=== PATIENT | male | born 1965 | race Caucasian/White ===

== ENCOUNTER 2016-06-05 11:00 | Inpatient (IN) | payer BC, OTHER ==
[~2016-06-05] VITALS: Ht 170.2 cm; Wt 93.3 kg
[~2016-06-05 11:00] MED LIST: AMITRIPTYLINE H10 MG PO; AMLODIPINE BESYL5 MG PO; ASPIR 8181 M1 PO; BENICAR HCT 401 EAC1 PO; BENICAR HCT1 TABLET PO; BUSPAR10 MG PO; BUSPAR5 MG PO; CELEXA10 MG PO; CELEXA20 MG PO; Calan SR,Covera HS,I PO; Cipro; INDOCIN25 MG PO; INDOMETHACIN25 MG PO; KLONOPIN0.5 M1 NG; METFORMIN HCL500 MG PO; MINIPRESS2 MG PO; MOBIC15 MG PO; PAMELOR75 MG PO; PRAVASTATIN SOD20 MG PO; PRAVASTATIN SOD40 MG PO; PRAZOSIN HCL2 MG PO; PRINIVIL20 MG PO; TACROLIMUS30 GM TP; TORADOL30 MG/ML IM; TRICOR145 MG PO; VICTOZA 2-0.6 MG/0.1 SC; VIIBRYD10 MG PO; VIIBRYD20 MG PO; WELLBUTRIN SR150 MG PO; WELLBUTRIN100 M1 PO; ZESTORETIC,P1 TABLE1 PO; [UNRECOGNIZED DRUG - OTHER] PO
[2016-06-05 11:52] LABS: EOSINOPHIL (%) 1.7 % (0-5); EOSINOPHIL COUNT 0.1 K/uL (0-0.3); HEMATOCRIT 40.4 % (38.0-50.0); IMMATURE GRANULOCYTE (%) 0.2 % (0.0-0.7); INSTRUMENT ABS NEUTROPHIL CT 6.2 K/uL; LYMPHOCYTE COUNT 1.4 K/uL (1.0-2.8); MCH 28.9 PG (29.0-34.0); MCHC 34.2 G/DL (30.0-36.0); MCV 84.7 FL (86-99); MEAN PLAT.VOLUME 9.7 uM^3 (9.0-12.4); MONOCYTE (%) 4.6 % (3-12); MONOCYTE COUNT 0.4 K/uL (0-0.8); NEUTROPHIL (%) 76.2 % (45-76); NEUTROPHIL COUNT 6.2 K/uL (1.8-6.4); PLATELET COUNT 172 K/uL (156-360); RBC DIS.WIDTH-SD 36.4 % (39-53); RED BLOOD COUNT 4.77 M/uL (4.00-5.50); WHITE BLOOD COUNT 8.2 K/uL (4.1-10.2)
[2016-06-05 12:01] LABS: INTER. NORMALIZED RATIO 1.1; PROTHROMBIN TIME 10.7 (9.2-11.2); PTT 25.3 (25-32)
[2016-06-05 12:03] LABS: CHLORIDE 101 mEq/L (99-109); POTASSIUM 3.7 mEq/L (3.7-5.4); SODIUM 137 mEq/L (136-147)
[2016-06-05 12:04] LABS: GLUCOSE 191 mg/dL (70-99)
[2016-06-05 12:06] LABS: ANION GAP 9 MEQ/L (2-14)
[2016-06-05 12:08] LABS: GFR ESTIMATE (CALCULATED) > 59 mL/min/
[2016-06-05 12:09] LABS: UREA NITROGEN (BUN) 12 mg/dL (9-23)
[2016-06-05 12:51] LABS: Estimated Average Glucose 140 mg/dL (70-123); HEMOGLOBIN A1c (GLYCOHEMOGLOB) 6.5 % HGB (Below 5.7)
[2016-06-05 14:48] LABS: HDL CHOLESTEROL 28 MG/DL (Desirable>=40); LDL CHOLESTEROL 70 mg/dL (Desirable<100); NON-HDL CHOLESTEROL 102 mg/dL (Desirable<160); TOTAL CHOLESTEROL 130 mg/dL (Desirable<200); TRIGLYCERIDES 158 MG/DL (Normal: <150)
[2016-06-05] MEDS ORDERED: PRAZOSIN HCL5 MG PO (16:42)
[2016-06-05] MEDS ORDERED: VIIBRYD10 MG PO (16:43)
[2016-06-05] MEDS ORDERED: VICTOZA 2-0.6 MG/0.1 SC (16:45)
[2016-06-05] MEDS ORDERED: NEURONTIN600 MG PO (16:46)
[2016-06-05] MEDS ORDERED: KETOROLAC30 MG/1 M3 IM (16:46)
[2016-06-05 18:00] LABS: EOSINOPHIL COUNT 0.1 K/uL (0-0.3); HEMATOCRIT 39.6 % (38.0-50.0); IMMATURE GRANULOCYTE (%) 0.3 % (0.0-0.7); INSTRUMENT ABS NEUTROPHIL CT 4.2 K/uL; LYMPHOCYTE COUNT 2.1 K/uL (1.0-2.8); MCH 28.9 PG (29.0-34.0); MCHC 34.3 G/DL (30.0-36.0); MCV 84.3 FL (86-99); MEAN PLAT.VOLUME 9.5 uM^3 (9.0-12.4); MONOCYTE (%) 5.1 % (3-12); MONOCYTE COUNT 0.4 K/uL (0-0.8); NEUTROPHIL (%) 61.4 % (45-76); NEUTROPHIL COUNT 4.2 K/uL (1.8-6.4); PLATELET COUNT 177 K/uL (156-360); RBC DIS.WIDTH-CV 11.9 % (11.8-14.6); RBC DIS.WIDTH-SD 36.7 % (39-53); WHITE BLOOD COUNT 6.8 K/uL (4.1-10.2)
[2016-06-05 18:09] LABS: CHLORIDE 104 mEq/L (99-109); POTASSIUM 3.7 mEq/L (3.7-5.4); SODIUM 141 mEq/L (136-147)
[2016-06-05 18:11] LABS: GLUCOSE 146 mg/dL (70-99)
[2016-06-05 18:12] LABS: ANION GAP 10 MEQ/L (2-14)
[2016-06-05 18:15] LABS: GFR ESTIMATE (CALCULATED) > 59 mL/min/
[2016-06-05 18:16] LABS: UREA NITROGEN (BUN) 9 mg/dL (9-23)
[2016-06-05 18:24] LABS: D-DIMER ELISA 0.19 mg/L FEU (< 0.57)
[2016-06-05 18:25] LABS: TROP-I INTERPRETATION NEGATIVE; TROPONIN-I 0.01 ng/mL (0.0-0.30)
[2016-06-05 18:43] LABS: HDL CHOLESTEROL 26 MG/DL (Desirable>=40); LDL CHOLESTEROL 74 mg/dL (Desirable<100); NON-HDL CHOLESTEROL 100 mg/dL (Desirable<160); TOTAL CHOLESTEROL 126 mg/dL (Desirable<200); TRIGLYCERIDES 131 MG/DL (Normal: <150)
[2016-06-05 19:54] VITALS: BP 122/81
[2016-06-05 23:47] LABS: POINT-OF-CARE METER ID UU14174225
[2016-06-06] VITALS (7 sets, daily range): BP systolic 115–150; BP diastolic 59–98
[2016-06-06 08:10] LABS: TROP-I INTERPRETATION NEGATIVE; TROPONIN-I < 0.01 ng/mL (0.0-0.30)
[2016-06-06 11:59] LABS: POINT-OF-CARE METER ID UU14188625
[2016-06-06] MEDS ORDERED: ASPIR 8181 M1 PO (15:46)
[2016-06-06 16:37] LABS: POINT-OF-CARE METER ID UU14188625
[2016-06-07 03:58] VITALS: BP 130/71
[2016-06-07 08:49] VITALS: BP 132/81
== END 2016-06-07 11:40 | disposition home or self-care (01) | DRG 918 ==
LOC: EME 11:00 → 5SOUTH 16:29 → EDOF 16:29 → 5SOUTH 19:21
PROVIDERS: Emergency Medicine; Internal Medicine
DX: T42.6X1A Poisoning by other antiepileptic and sedative-hypnotic drugs, accidental (unintentional), initial encounter (principal); I95.2 Hypotension due to drugs; R29.810 Facial weakness; R48.2 Apraxia; R47.81 Slurred speech; H57.02 Anisocoria; I67.9 Cerebrovascular disease, unspecified; I10 Essential (primary) hypertension; E78.5 Hyperlipidemia, unspecified; E11.9 Type 2 diabetes mellitus without complications; G43.909 Migraine, unspecified, not intractable, without status migrainosus; F17.210 Nicotine dependence, cigarettes, uncomplicated; Z72.52 High risk homosexual behavior
CPT/HCPCS: 70450; 70552; 80048; 80048 91; 80061; 82948; 83036; 84484; 85025; 85025 91; 85379; 85610; 85730; 93005; 93880; 94799; 99281; 99285; J1650; J1815; J1885; J2405; J3360; J7030; J7040

== ENCOUNTER 2016-08-23 10:10 | Emergency (ER) | payer BC, OTHER ==
[~2016-08-23] VITALS: Ht 170.2 cm; Wt 91.3 kg
[~2016-08-23 10:10] MED LIST changes: +KETOROLAC30 MG/1 M3 IM; +NEURONTIN600 MG PO; +PRAZOSIN HCL5 MG PO
[2016-08-23 11:32] LABS: EOSINOPHIL (%) 1.5 % (0-5); EOSINOPHIL COUNT 0.1 K/uL (0-0.3); HEMATOCRIT 43.5 % (38.0-50.0); IMMATURE GRANULOCYTE (%) 0.5 % (0.0-0.7); INSTRUMENT ABS NEUTROPHIL CT 5.8 K/uL; LYMPHOCYTE COUNT 1.5 K/uL (1.0-2.8); MCH 28.9 PG (29.0-34.0); MCHC 34.7 G/DL (30.0-36.0); MCV 83.3 FL (86-99); MEAN PLAT.VOLUME 9.8 uM^3 (9.0-12.4); MONOCYTE (%) 5.1 % (3-12); MONOCYTE COUNT 0.4 K/uL (0-0.8); NEUTROPHIL (%) 73.5 % (45-76); NEUTROPHIL COUNT 5.8 K/uL (1.8-6.4); PLATELET COUNT 161 K/uL (156-360); RED BLOOD COUNT 5.22 M/uL (4.00-5.50); WHITE BLOOD COUNT 7.9 K/uL (4.1-10.2)
[2016-08-23 11:42] LABS: CHLORIDE 103 mEq/L (99-109); POTASSIUM 4.3 mEq/L (3.7-5.4); SODIUM 136 mEq/L (136-147)
[2016-08-23 11:44] LABS: GLUCOSE 139 mg/dL (70-99)
[2016-08-23 11:45] LABS: ANION GAP 11 MEQ/L (2-14)
[2016-08-23 11:48] LABS: GFR ESTIMATE (CALCULATED) 37 mL/min/; UREA NITROGEN (BUN) 16 mg/dL (9-23)
[2016-08-23 11:52] LABS: TROP-I INTERPRETATION NEGATIVE; TROPONIN-I < 0.01 ng/mL (0.0-0.30)
[2016-08-23 13:06] LABS: ADD MIUA? YES; BILIRUBIN NEGATIVE; BLOOD NEGATIVE; COLOR YELLOW ((YELLOW)); GLUCOSE (STRIP) NEGATIVE; KETONES NEGATIVE; LEUKOCYTES NEGATIVE; NITRITE NEGATIVE; PROTEIN (STRIP) NEGATIVE; SPECIFIC GRAVITY 1.009 (1.000-1.030); UROBILINOGEN 0.2 MG/DL (0.2-1.0)
[2016-08-23 13:30] LABS: BACTERIA NONE SEEN /HPF; EPITHELIAL CELLS NONE SEEN /HPF; HYALINE CASTS TNTC /LPF; MUCUS TRACE /LPF; RED BLOOD CELLS 0-5 /HPF (0-5); UCUL ADDED? NO; UNCLASSIFIED CRYSTALS 1+ /HPF; URIC ACID CRYSTALS 1+ /HPF; WHITE BLOOD CELLS 0-5 /HPF (0-5)
[2016-08-23 13:37] VITALS: BP 125/82
== END 2016-08-23 13:39 | disposition home or self-care (01) ==
LOC: EME 10:10
PROVIDERS: Emergency Medicine
DX: I95.9 Hypotension, unspecified (principal); I10 Essential (primary) hypertension; Z72.0 Tobacco use; Z87.442 Personal history of urinary calculi; E78.5 Hyperlipidemia, unspecified; Z88.1 Allergy status to other antibiotic agents
CPT/HCPCS: 80048; 81003; 84484; 85025; 99281; 99285; J7030

== ENCOUNTER 2017-02-15 07:08 | Emergency (ER) | payer BC, OTHER ==
[~2017-02-15] VITALS: Ht 170.2 cm; Wt 92.0 kg
[2017-02-15 10:11] LABS: EOSINOPHIL (%) 2.5 % (0-5); EOSINOPHIL COUNT 0.1 K/uL (0-0.3); HEMATOCRIT 41.6 % (38.0-50.0); IMMATURE GRANULOCYTE (%) 0.4 % (0.0-0.7); INSTRUMENT ABS NEUTROPHIL CT 3.4 K/uL; LYMPHOCYTE COUNT 1.6 K/uL (1.0-2.8); MCH 29.9 PG (29.0-34.0); MCHC 35.1 G/DL (30.0-36.0); MCV 85.1 FL (86-99); MEAN PLAT.VOLUME 9.5 uM^3 (9.0-12.4); MONOCYTE (%) 7.4 % (3-12); MONOCYTE COUNT 0.4 K/uL (0-0.8); NEUTROPHIL (%) 60.6 % (45-76); NEUTROPHIL COUNT 3.4 K/uL (1.8-6.4); PLATELET COUNT 176 K/uL (156-360); RBC DIS.WIDTH-CV 12.7 % (11.8-14.6); RBC DIS.WIDTH-SD 38.9 % (39-53); RED BLOOD COUNT 4.89 M/uL (4.00-5.50); WHITE BLOOD COUNT 5.7 K/uL (4.1-10.2)
[2017-02-15 10:16] LABS: PROTHROMBIN TIME 11.5 SEC (10.2-12.9)
[2017-02-15 10:18] LABS: PTT 28.7 SEC (25-37)
[2017-02-15 10:34] LABS: ANION GAP 6 MEQ/L (2-14); CHLORIDE 106 MEQ/L (99-109); POTASSIUM 3.9 MEQ/L (3.7-5.4); SAMPLE HEMOLYSIS CHECK 0; SAMPLE ICTERIC CHECK 0; SAMPLE LIPEMIA CHECK 0; SODIUM 141 MEQ/L (136-147)
[2017-02-15 10:35] LABS: TOTAL BILIRUBIN 0.7 MG/DL (0.0-1.0)
[2017-02-15 10:40] LABS: ALKALINE PHOSPHATASE 75 IU/L (3-129); GFR ESTIMATE (CALCULATED) > 59 mL/min/; GLUCOSE 103 mg/dL (70-99); UREA NITROGEN (BUN) 11 mg/dL (9-23)
[2017-02-15 13:08] VITALS: BP 159/98
== END 2017-02-15 13:11 | disposition home or self-care (01) ==
LOC: EME 07:08
PROVIDERS: Emergency Medicine
DX: G43.909 Migraine, unspecified, not intractable, without status migrainosus (principal); R21 Rash and other nonspecific skin eruption; I10 Essential (primary) hypertension; F17.200 Nicotine dependence, unspecified, uncomplicated; F32.9 Major depressive disorder, single episode, unspecified; E78.5 Hyperlipidemia, unspecified; F43.10 Post-traumatic stress disorder, unspecified
CPT/HCPCS: 70450; 80053; 85025; 85610; 85730; 93005; 99281; 99285; J0780; J1100; J1200; J2765; J7030